=== PATIENT | male | born 1950 | race Caucasian/White ===

== ENCOUNTER 2017-10-06 12:33 | Emergency (ER) | payer BC ==
[2017-10-06 12:53] VITALS: RESP 18
[2017-10-06] MEDS ORDERED: DIPH,PERTUS(ACELL)TETVAC-LF 0.5 ML VIAL IM ONE (12:56)
--- NOTE | 2017-10-06 12:59 | ED ---
General Adult HPI - General Chief complaint: Fall Stated complaint: fall from ladder, head injury Time Seen by Provider: 10/06/17 12:46 Source: patient, family, RN notes reviewed Mode of arrival: ambulatory Limitations: altered mental status - History of Present Illness Initial comments: Patient is a pleasant 67-year-old male presenting to the emergency department after a fall. Patient does not recall the fall. Patient believes he fell probably only around 4 feet or so from a small stepladder. states this may be true however patient may have fallen up to 10 or 15 feet as he was working on someone does as well. She does notice that patient has had some repetitive questioning. Patient does recall waking up this morning and doing his normal activities. Patient only complains of a mild headache on the left side. Unclear last tetanus immunization. No chest pain or dyspnea. No abdominal pain. No extremity injury. Patient was ambulatory. - Related Data Home Medications Medication Instructions Recorded Confirmed ARIPiprazole [Abilify] 5 mg PO HS 10/06/17 10/06/17 Dutasteride [Avodart] 0.5 mg PO HS 10/06/17 10/06/17 Escitalopram Oxalate [Lexapro] 20 mg PO HS 10/06/17 10/06/17 clonazePAM [KlonoPIN] 0.5 mg PO BID 10/06/17 10/06/17 Allergies Allergy/AdvReac Type Severity Reaction Status Date / Time No Known Allergies Allergy Verified 10/06/17 13:05 Review of Systems ROS Statement: Those systems with pertinent positive or pertinent negative responses have been documented in the HPI. ROS Other: All systems not noted in ROS Statement are negative. Constitutional: Denies: fever Eyes: Denies: eye pain ENT: Denies: ear pain Respiratory: Denies: cough Cardiovascular: Denies: chest pain Endocrine: Denies: fatigue Gastrointestinal: Denies: abdominal pain Genitourinary: Denies: dysuria Musculoskeletal: Denies: back pain Skin: Denies: lesions Neurological: Reports: headache Past Medical History Past Medical History: No Reported History History of Any Multi-Drug Resistant Organisms: None Reported Past Surgical History: Hernia Repair Past Psychological History: Anxiety, Depression Smoking Status: Current every day smoker Past Alcohol Use History: None Reported Past Drug Use History: None Reported General Exam Limitations: altered mental status General appearance: alert, in no apparent distress Head exam: Present: other (Left frontal abrasions) Eye exam: Present: normal appearance, PERRL, EOMI. Absent: nystagmus ENT exam: Present: normal oropharynx Neck exam: Present: normal inspection, other (C-collar is in place). Absent: tenderness Respiratory exam: Present: normal lung sounds bilaterally. Absent: chest wall tenderness Cardiovascular Exam: Present: regular rate, normal rhythm GI/Abdominal exam: Present: soft. Absent: distended, tenderness, guarding, rebound, rigid Extremities exam: Present: normal inspection, full ROM. Absent: tenderness Neurological exam: Present: alert, oriented X3, CN II-XII intact. Absent: motor sensory deficit Expanded Neurological exam: Present: protecting the airway Patient oriented to: Present: person, place, time Speech: Present: fluid speech Cranial nerves: EOM's Intact: Normal, Facial Sensation: Normal Sensory exam: Upper Extremity Light Touch: Normal, Lower Extremity Light Touch: Normal Motor strength exam: RUE: 5, LUE: 5, RLE: 5, LLE: 5 Eye Response: (4) open spontaneously Motor Response: (6) obeys commands Verbal Response: (5) oriented Psychiatric exam: Present: normal affect, normal mood Skin exam: Present: abrasion (Left frontal and bilateral legs) Course Vital Signs 10/06/17 10/06/17 10/06/17 12:46 13:22 14:36 Temperature 97.5 F L Pulse Rate 79 73 72 Respiratory 18 18 18 Rate Blood Pressure 150/82 136/85 126/75 O2 Sat by Pulse 96 98 95 Oximetry Medical Decision Making - Medical Decision Making Patient reevaluated and improved. Patient is alert and appropriate. Family states patient mentation has returned to normal. Patient and family updated on results. - Radiology Data Radiology results: report reviewed (Computed tomography scan of the brain and cervical spine reveal no acute process.), image reviewed (Chest and pelvis x- rays show no acute process.) Disposition Clinical Impression: Fall, Concussion Disposition: HOME SELF-CARE Condition: Stable Instructions: Concussion (ED), Head Injury (ED) Additional Instructions: Wash abrasions twice daily with soap and water and apply antibiotic ointment. Please follow-up with primary care physician in the next couple days for recheck. Return for change in mental status, confusion, persistent vomiting, coordination problems, difficulty walking, worsening symptoms or other concerns. Is patient prescribed a controlled substance at d/c from ED?: No Referrals: Ron Da Silva DO [Primary Care Provider] - 1-2 days Time of Disposition: 14:55
--- NOTE | 2017-10-06 13:42 | CT ---
EXAMINATION TYPE: CT brain dontrell chavarria con DATE OF EXAM: 10/06/2017 COMPARISON: None HISTORY: Fall from ladder, head injury CT DLP: 1350.6 mGycm, Automated exposure control for dose reduction was used. CONTRAST: None CT of the brain is performed utilizing 3 mm thick sections through the posterior fossa and 3 mm thick sections through the remaining calvarium. Study is performed within 24 hours of arrival to the hospital. No abnormal hyperdensity is present to suggest an acute intracranial hemorrhage. No mass lesion is evident. No acute infarcts are evident. Ventricles and sulci are appropriate for the patient age. Soft tissue swelling is over the left frontal region. No underlying fracture is evident. Some subcuta neous emphysema is at the soft tissue swelling site. Paranasal sinuses and mastoid air cells within the [id number] are clear. IMPRESSIONS: 1. No acute intracranial process. CT cervical spine. COMPARISON: None CT of the cervical spine is performed in the axial plane at 2 mm thick sections. Reconstructed image s in the coronal, and sagittal plane are reviewed on the computer. No acute fractures are evident. Vertebral body alignment is normal. Disc heights are preserved.Disc bulging with mild anterior thecal sac compression at C4-5 level. Vertebral body heights are preserved. No spinal canal stenosis is evident. Mild uncovertebral joint hypertrophy at C6-7 has mild foraminal narrowing. IMPRESSIONS: 1. No acute osseous abnormality.
--- NOTE | 2017-10-06 14:01 | XR ---
EXAMINATION TYPE: XR chest 1V portable DATE OF EXAM: 10/06/2017 COMPARISON: NONE HISTORY: Pain post fall TECHNIQUE: Single frontal view of the chest is obtained. FINDINGS: There is no focal air space opacity, pleural effusion, or pneumothorax seen. The cardiac silhouette size is within normal limits. The osseous structures are intact. Arthropathy of the shou lders. IMPRESSION: No acute process.
--- NOTE | 2017-10-06 14:01 | XR ---
EXAMINATION TYPE: XR pelvis AP view DATE OF EXAM: 10/06/2017 CLINICAL HISTORY: Fall injury with pain. TECHNIQUE: A single AP view of the pelvis is obtained. COMPARISON: None. FINDINGS: There is no acute fracture/dislocation evident in the pelvis. The sacroiliac joints appea r symmetric and unremarkable. Mild to moderate right greater than left axial hip joint space loss is present. There is mild spurring at head neck junction. Vascular coils right groin region are redemons trated. IMPRESSION: There is no acute fracture or dislocation in the pelvis.
[2017-10-06] MEDS ORDERED: ACETAMINOPHEN TAB 500 MG TAB PO STA (14:55)
[2017-10-06 16:31] VITALS: BP 125/83; PULSE 84; TEMP 98
== END 2017-10-06 15:11 | disposition home or self-care (01) ==
LOC: EC 12:33
DX: S06.0X0A Concussion without loss of consciousness, initial encounter (principal); S00.81XA Abrasion of other part of head, initial encounter; S80.812A Abrasion, left lower leg, initial encounter; S80.811A Abrasion, right lower leg, initial encounter; R40.2142 Coma scale, eyes open, spontaneous, at arrival to emergency department; R40.2252 Coma scale, best verbal response, oriented, at arrival to emergency department; R40.2362 Coma scale, best motor response, obeys commands, at arrival to emergency department; F41.9 Anxiety disorder, unspecified; F32.9 Major depressive disorder, single episode, unspecified; F17.200 Nicotine dependence, unspecified, uncomplicated; Z23 Encounter for immunization; Z79.899 Other long term (current) drug therapy; W11.XXXA Fall on and from ladder, initial encounter; Y92.89 Other specified places as the place of occurrence of the external cause
CPT/HCPCS: 70450; 71045; 72125; 72170; 90471; 90715; 99284

== ENCOUNTER 2021-05-03 17:09 | Inpatient (IN) | payer MEDICARE, BC ==
[2021-05-03] MEDS ORDERED: SODIUM CHLORIDE 0.9% 1,000 ML IV STA ×2 (17:54→19:26)
[2021-05-03] MEDS ORDERED: diphenhydrAMINE 50 MG/ML 1 ML VIAL IVP STA (17:54)
[2021-05-03] MEDS ORDERED: METOCLOPRAMIDE 5 MG/ML 2 ML VIAL IVP STA (17:54)
[2021-05-03] MEDS ORDERED: MORPHINE SULFATE 4 MG/ML SYRINGE IV STA (17:54)
[2021-05-03] MEDS ORDERED: PANTOPRAZOLE 40 MG/10 ML VIAL IVP STA (17:54)
[2021-05-03 18:25] LABS: Basophils % (A) 0 %; Eosinophils # (A) 0.1 k/uL (0-0.7); Eosinophils % (A) 0 %; HCT 46.8 % (39.0-53.0); HGB 16.1 gm/dL (13.0-17.5); Lymphocytes # (A) 0.7 k/uL (1.0-4.8); Lymphocytes % (A) 4 %; MCH 31.6 pg (25.0-35.0); MCHC 34.5 g/dL (31.0-37.0); MCV 91.7 fL (80.0-100.0); Mean Platelet Volume 8.1; Monocytes # (A) 1.3 k/uL (0-1.0); Monocytes % (A) 7 %; Neutrophils # (A) 15.2 k/uL (1.3-7.7); Neutrophils % (A) 86 %; Platelet Count 240 k/uL (150-450); RDW 12.6 % (11.5-15.5); WBC 17.7 k/uL (3.8-10.6)
[2021-05-03 18:33] LABS: Partial Thromboplastin Time 23.8 sec (22.0-30.0)
[2021-05-03 18:35] LABS: ALT 28 U/L (4-49); AST 29 U/L (17-59); African American GFR (CKD) >90 (>60 ml/min/1.73 sqM); Albumin 4.1 g/dL (3.5-5.0); Alkaline Phosphatase 116 U/L (38-126); Amylase 45 U/L (30-110); Anion Gap 9 mmol/L; Blood Urea Nitrogen 12 mg/dL (9-20); Carbon Dioxide 27 mmol/L (22-30); Chloride 100 mmol/L (98-107); Glucose 132 mg/dL (74-99); Lipase 14 U/L (23-300); Non-African American GFR(CKD) 87 (>60 ml/min/1.73 sqM); Potassium 4.3 mmol/L (3.5-5.1); Sodium 136 mmol/L (137-145); Total Bilirubin 1.4 mg/dL (0.2-1.3); Total Protein 7.3 g/dL (6.3-8.2)
--- NOTE | 2021-05-03 19:13 | CT ---
EXAMINATION TYPE: CT abdomen pelvis w con DATE OF EXAM: 05/03/2021 COMPARISON: None HISTORY: Abdominal pain CT DLP: mGycm Automated exposure control for dose reduction was used. CONTRAST: The contrast was Isovue 100 mL. Images obtained from the diaphragm to the floor the pelvis. There is mild subsegmental atelectasis right lung base. Heart size is normal. There is no pericardial effusion. There is small hiatal hernia. Liver spleen and stomach appear intact. There is no pancreat ic mass. Gallbladder appears normal. The bile ducts are not dilated. There is no adrenal mass. There are bilateral multiple renal cortical cysts that measure up to 2 cm. There is no hydronephrosis. Ureters are not dilated. There is no retroperitoneal adenopathy. There is increased density at the hepatic flexure of the colon that could be surgical clips or ingest ed material. Correlation with the surgical history is needed. There is extensive fat stranding in the right mid abdomen apparently related to dilated fluid-filled appendix with surrounding inflammatory changes. Appendix measures up to 1.5 cm. There is no free fluid in the pelvis. Bladder distends yamileth hly. Prostate is intact. There is no inguinal hernia. There is no evidence of a bowel obstruction. There is a 3 cm fat-containing umbilical hernia. The lumbar vertebrae have normal alignment. Posterio r elements are intact. There is no compression fracture. Bony pelvis is intact. The hip joints are in tact. IMPRESSION: Extensive fat stranding in the right lower quadrant with apparent dilated appendix related to appendi citis. Appendiceal rupture is possible. Mild atelectasis at the right lung base.
[2021-05-03] MEDS ORDERED: ONDANSETRON 4 MG/2 ML VIAL IVP PRN (19:54)
[2021-05-03] MEDS ORDERED: MORPHINE SULFATE 4 MG/ML SYRINGE IV PRN (19:54)
[2021-05-03] MEDS ORDERED: NALOXONE 0.4 MG/ML 1 ML VIAL IV PRN (19:54)
[2021-05-03] MEDS ORDERED: metroNIDAZOLE-NS PMX 500 MG in SALINE 1 100ML.BAG IVPB ONE (20:00)
[2021-05-03] MEDS ORDERED: CEFEPIME 2 GM in SODIUM CHLORIDE 0.9% 100 ML IVPB ONE (20:00)
--- NOTE | 2021-05-03 20:02 | ED ---
General Adult HPI - General Chief complaint: Abdominal Pain Stated complaint: abd pain, sent from walk-in clinic Time Seen by Provider: 05/03/21 17:20 Source: patient, RN notes reviewed, old records reviewed Mode of arrival: ambulatory Limitations: no limitations - History of Present Illness Initial comments: Patient is a 71-year-old male with past medical history remarkable for bilateral hernia repairs, prostate issues presents emergency Department complaining of acute abdominal pain for one day. Describes it as a sharp, achy pain primarily in the right lower quadrant. Endorses nausea. Denies any emesis or diarrhea. Still passing gas. No concern for constipation. Denies any radiation of the pain. States he started dosing of this morning. He initially presented to an outside clinic, who instructed him to come here for further evaluation. Denies any chest pain, shortness breath, fevers, chills. Has no other acute complaints at this time. - Related Data Home Medications Medication Instructions Recorded Confirmed Atomoxetine HCl [Strattera] 60 mg PO DAILY 05/03/21 05/03/21 OLANZapine 15 mg PO DAILY 05/03/21 05/03/21 Venlafaxine HCl ER [Effexor Xr] 150 mg PO DAILY 05/03/21 05/03/21 lamoTRIgine 150 mg PO BID 05/03/21 05/03/21 Allergies Allergy/AdvReac Type Severity Reaction Status Date / Time No Known Allergies Allergy Verified 05/03/21 19:56 Review of Systems ROS Statement: Those systems with pertinent positive or pertinent negative responses have been documented in the HPI. Review of Systems: CONST: Denies fever EYES: Denies blurry vision ENT: Denies nasal congestion C/V: Denies Chest pain RESP: Denies shortness of breath GI: Endorses abdominal pain : Denies dysuria SKIN: Denies rash. MSK: Denies joint pain. NEURO: Denies headache ROS Other: All systems not noted in ROS Statement are negative. Past Medical History Past Medical History: No Reported History History of Any Multi-Drug Resistant Organisms: None Reported Past Surgical History: Hernia Repair Past Psychological History: Anxiety, Depression Smoking Status: Never smoker Past Alcohol Use History: None Reported Past Drug Use History: None Reported General Exam - General Exam Comments Initial Comments: General: He is mild distress secondary to abdominal discomfort. HEAD: Normal with no signs of head trauma. EYES: PERRLA, EOMI, conjunctiva normal, no discharge. ENT: Hearing grossly intact, normal oropharynx. RESPIRATORY: Clear breath sounds bilaterally. No wheezes, rales, or rhonchi. C/V: Regular rate and rhythm. S1 and S2 auscultated, no edema, peripheral pulses 2+ and intact throughout ABD: Abdomen is soft, nondistended. Patient is tender over McBurney's point in the right lower quadrant. No rebound tenderness. No peritoneal signs. Minimal guarding. EXT: Normal range of motion, no obvious deformity SKIN: No rashes or lesions observed on exposed skin. NEURO: Alert and oriented 4. Limitations: no limitations Course Vital Signs 05/03/21 05/03/21 17:15 20:00 Temperature 98.2 F 98.9 F Pulse Rate 116 H 94 Respiratory 20 16 Rate Blood Pressure 141/89 126/73 O2 Sat by Pulse 97 95 Oximetry Medical Decision Making - Medical Decision Making Based on the patient's presentation physical exam, and there is concern for acute intra-abdominal process for his current symptoms. Therefore we will obtain abdominal laboratory studies as well as CT abdomen and pelvis. He was in agreement this plan. He'll be given IV analgesia as well as a 1 L fluid bolus. Laboratory studies were remarkable for leukocytosis of 17.7. Lactate is within normal limits. Urinalysis is unremarkable. Covid is negative. Remainder of her labs are unremarkable. CT imaging reveals findings concerning for acute appendicitis or possible rupture. I did update the patient on the findings. He will be started on an about accept her blood cultures are obtained. He started on cefepime and Flagyl. I spoke with the on-call surgeon, Dr. Botello was in agreement this plan. He does not believe that the appendix is ruptured at this time and will evaluate the patient morning. He'll remain nothing by mouth. I discussed this with the patient he was in agreement this plan. Patient was therefore admitted in serious condition. - Lab Data Result diagrams: 05/03/21 18:02 05/03/21 18:02 Lab Results 05/03/21 05/03/21 05/03/21 Range/Units 18:02 18:02 18:02 WBC 17.7 H (3.8-10.6) k/uL RBC 5.10 (4.30-5.90) m/uL Hgb 16.1 (13.0-17.5) gm/dL Hct 46.8 (39.0-53.0) % MCV 91.7 (80.0-100.0) fL MCH 31.6 (25.0-35.0) pg MCHC 34.5 (31.0-37.0) g/dL RDW 12.6 (11.5-15.5) % Plt Count 240 (150-450) k/uL MPV 8.1 Neutrophils % 86 % Lymphocytes % 4 % Monocytes % 7 % Eosinophils % 0 % Basophils % 0 % Neutrophils # 15.2 H (1.3-7.7) k/uL Lymphocytes # 0.7 L (1.0-4.8) k/uL Monocytes # 1.3 H (0-1.0) k/uL Eosinophils # 0.1 (0-0.7) k/uL Basophils # 0.0 (0-0.2) k/uL PT 11.0 (9.0-12.0) sec INR 1.0 (<1.2) APTT 23.8 (22.0-30.0) sec Sodium 136 L (137-145) mmol/L Potassium 4.3 (3.5-5.1) mmol/L Chloride 100 (98-107) mmol/L Carbon Dioxide 27 (22-30) mmol/L Anion Gap 9 mmol/L BUN 12 (9-20) mg/dL Creatinine 0.88 (0.66-1.25) mg/dL Est GFR (CKD-EPI)AfAm >90 (>60 ml/min/1.73 sqM) Est GFR (CKD-EPI)NonAf 87 (>60 ml/min/1.73 sqM) Glucose 132 H (74-99) mg/dL Plasma Lactic Acid Torrey (0.7-2.0) mmol/L Calcium 9.0 (8.4-10.2) mg/dL Total Bilirubin 1.4 H (0.2-1.3) mg/dL AST 29 (17-59) U/L ALT 28 (4-49) U/L Alkaline Phosphatase 116 (38-126) U/L Total Protein 7.3 (6.3-8.2) g/dL Albumin 4.1 (3.5-5.0) g/dL Amylase 45 (30-110) U/L Lipase 14 L (23-300) U/L Urine Color Urine Appearance (Clear) Urine pH (5.0-8.0) Ur Specific Oaks (1.001-1.035) Urine Protein (Negative) Urine Glucose (UA) (Negative) Urine Ketones (Negative) Urine Blood (Negative) Urine Nitrite (Negative) Urine Bilirubin (Negative) Urine Urobilinogen (<2.0) mg/dL Ur Leukocyte Esterase (Negative) Urine RBC (0-5) /hpf Urine WBC (0-5) /hpf Ur Squamous Epith Cells (0-4) /hpf Urine Mucus (None) /hpf Coronavirus (PCR) (Not Detectd) Blood Type Confirm 05/03/21 05/03/21 05/03/21 Range/Units 18:02 18:02 19:47 WBC (3.8-10.6) k/uL RBC (4.30-5.90) m/uL Hgb (13.0-17.5) gm/dL Hct (39.0-53.0) % MCV (80.0-100.0) fL MCH (25.0-35.0) pg MCHC (31.0-37.0) g/dL RDW (11.5-15.5) % Plt Count (150-450) k/uL MPV Neutrophils % % Lymphocytes % % Monocytes % % Eosinophils % % Basophils % % Neutrophils # (1.3-7.7) k/uL Lymphocytes # (1.0-4.8) k/uL Monocytes # (0-1.0) k/uL Eosinophils # (0-0.7) k/uL Basophils # (0-0.2) k/uL PT (9.0-12.0) sec INR (<1.2) APTT (22.0-30.0) sec Sodium (137-145) mmol/L Potassium (3.5-5.1) mmol/L Chloride (98-107) mmol/L Carbon Dioxide (22-30) mmol/L Anion Gap mmol/L BUN (9-20) mg/dL Creatinine (0.66-1.25) mg/dL Est GFR (CKD-EPI)AfAm (>60 ml/min/1.73 sqM) Est GFR (CKD-EPI)NonAf (>60 ml/min/1.73 sqM) Glucose (74-99) mg/dL Plasma Lactic Acid Torrey 1.8 (0.7-2.0) mmol/L Calcium (8.4-10.2) mg/dL Total Bilirubin (0.2-1.3) mg/dL AST (17-59) U/L ALT (4-49) U/L Alkaline Phosphatase (38-126) U/L Total Protein (6.3-8.2) g/dL Albumin (3.5-5.0) g/dL Amylase (30-110) U/L Lipase (23-300) U/L Urine Color Urine Appearance (Clear) Urine pH (5.0-8.0) Ur Specific Oaks (1.001-1.035) Urine Protein (Negative) Urine Glucose (UA) (Negative) Urine Ketones (Negative) Urine Blood (Negative) Urine Nitrite (Negative) Urine Bilirubin (Negative) Urine Urobilinogen (<2.0) mg/dL Ur Leukocyte Esterase (Negative) Urine RBC (0-5) /hpf Urine WBC (0-5) /hpf Ur Squamous Epith Cells (0-4) /hpf Urine Mucus (None) /hpf Coronavirus (PCR) Not Detected (Not Detectd) Blood Type Confirm A Positive 05/03/21 Range/Units 19:50 WBC (3.8-10.6) k/uL RBC (4.30-5.90) m/uL Hgb (13.0-17.5) gm/dL Hct (39.0-53.0) % MCV (80.0-100.0) fL MCH (25.0-35.0) pg MCHC (31.0-37.0) g/dL RDW (11.5-15.5) % Plt Count (150-450) k/uL MPV Neutrophils % % Lymphocytes % % Monocytes % % Eosinophils % % Basophils % % Neutrophils # (1.3-7.7) k/uL Lymphocytes # (1.0-4.8) k/uL Monocytes # (0-1.0) k/uL Eosinophils # (0-0.7) k/uL Basophils # (0-0.2) k/uL PT (9.0-12.0) sec INR (<1.2) APTT (22.0-30.0) sec Sodium (137-145) mmol/L Potassium (3.5-5.1) mmol/L Chloride (98-107) mmol/L Carbon Dioxide (22-30) mmol/L Anion Gap mmol/L BUN (9-20) mg/dL Creatinine (0.66-1.25) mg/dL Est GFR (CKD-EPI)AfAm (>60 ml/min/1.73 sqM) Est GFR (CKD-EPI)NonAf (>60 ml/min/1.73 sqM) Glucose (74-99) mg/dL Plasma Lactic Acid Torrey (0.7-2.0) mmol/L Calcium (8.4-10.2) mg/dL Total Bilirubin (0.2-1.3) mg/dL AST (17-59) U/L ALT (4-49) U/L Alkaline Phosphatase (38-126) U/L Total Protein (6.3-8.2) g/dL Albumin (3.5-5.0) g/dL Amylase (30-110) U/L Lipase (23-300) U/L Urine Color Light Yellow Urine Appearance Clear (Clear) Urine pH 7.5 (5.0-8.0) Ur Specific [place] 1.031 (1.001-1.035) Urine Protein Negative (Negative) Urine Glucose (UA) Negative (Negative) Urine Ketones Negative (Negative) Urine Blood Trace H (Negative) Urine Nitrite Negative (Negative) Urine Bilirubin Negative (Negative) Urine Urobilinogen <2.0 (<2.0) mg/dL Ur Leukocyte Esterase Negative (Negative) Urine RBC 2 (0-5) /hpf Urine WBC <1 (0-5) /hpf Ur Squamous Epith Cells <1 (0-4) /hpf Urine Mucus Rare H (None) /hpf Coronavirus (PCR) (Not Detectd) Blood Type Confirm Disposition Clinical Impression: Acute appendicitis Disposition: ADMITTED IP TO THIS HOSP Condition: Serious
[2021-05-03 20:04] LABS: Appearance,Urine Clear (Clear); Bilirubin,Urine Negative (Negative); Blood,Urine Trace (Negative); Color,Urine Light Yellow; Glucose,Urine (UA) Negative (Negative); Ketones,Urine Negative (Negative); Leukocyte Esterase,Urine Negative (Negative); Mucus,Urine Rare /hpf; Nitrite,Urine Negative (Negative); PH, Urine 7.5 (5.0-8.0); Protein,Urine Negative (Negative); RBC,Urine 2 /hpf (0-5); Specific Gravity,Urine 1.031 (1.001-1.035); Squamous Epithelial Cell,Urine <1 /hpf (0-4); Urobilinogen,Urine <2.0 mg/dL (<2.0); WBC,Urine <1 /hpf (0-5)
[2021-05-04] MEDS: HEPARIN SODIUM,PORCINE/PF 5,000 UNIT/0.5 ML SYRINGE SQ SCH ×3 (00:20→16:11)
[2021-05-04] MEDS: CEFEPIME 2 GM in SODIUM CHLORIDE 0.9% 100 ML IVPB SCH ×3 (03:39→20:22)
[2021-05-04] MEDS: metroNIDAZOLE-NS PMX 500 MG in SALINE 1 100ML.BAG IVPB SCH ×3 (03:40→20:23)
--- NOTE | 2021-05-04 09:58 | P.GSHP ---
History of Present Illness H&P Date: 05/04/21 Chief Complaint: Right lower quadrant pain 71-year-old male presents to the ER yesterday with a complaint of abdominal pain that began at 4 AM. Patient says it was not that severe and is actually better this morning. No history of symptoms prior to that. No diarrhea or co nstipation. Denies rectal bleeding or melena. Patient's white blood cell count was elevated at 17. CAT scan was performed which demonstrates significant thickening of the appendix and the base of the cecum. There are inflammatory changes in the right lower quadrant as well. Patient is afebrile. Was initially tachycardic but that resolved. Denies nausea vomiting. Appetite somewhat diminished. - Review of Systems Comment: The patient denies any acute changes in vision or hearing, no dysphagia or odynophagia, no chest pain or shortness of breath, no dysuria or hematuria, no headache, no runny nose, no rectal bleeding or melena, no unexplained weight loss Past Medical History Past Medical History: No Reported History History of Any Multi-Drug Resistant Organisms: None Reported Past Surgical History: Hernia Repair Additional Past Surgical History / Comment(s): partial prostate removal r/t enlargement Past Anesthesia/Blood Transfusion Reactions: No Reported Reaction Past Psychological History: Anxiety, Depression Smoking Status: Never smoker Past Alcohol Use History: None Reported Past Drug Use History: None Reported Medications and Allergies Home Medications Medication Instructions Recorded Confirmed Type Atomoxetine HCl [Strattera] 60 mg PO DAILY 05/03/21 05/03/21 History OLANZapine 15 mg PO DAILY 05/03/21 05/03/21 History Venlafaxine HCl ER [Effexor Xr] 150 mg PO DAILY 05/03/21 05/03/21 History lamoTRIgine 150 mg PO BID 05/03/21 05/03/21 History Allergies Allergy/AdvReac Type Severity Reaction Status Date / Time No Known Allergies Allergy Verified 05/03/21 19:56 Surgical - Exam Vital Signs Temp Pulse Resp BP Pulse Ox 98.2 F 116 H 20 141/89 97 05/03/21 17:15 05/03/21 17:15 05/03/21 17:15 05/03/21 17:15 05/03/21 17:15 Physical exam: General: Well-developed, well-nourished HEENT: Normocephalic, sclerae nonicteric Abdomen: Mild distention, right lower quadrant tenderness with fullness, incarcerated umbilical hernia Extremities: No edema Neuro: Alert and oriented Results - Labs 05/03/21 18:02 05/03/21 18:02 Abnormal Lab Results - Last 24 Hours (Table) 05/03/21 05/03/21 05/03/21 Range/Units 18:02 18:02 19:50 WBC 17.7 H (3.8-10.6) k/uL Neutrophils # 15.2 H (1.3-7.7) k/uL Lymphocytes # 0.7 L (1.0-4.8) k/uL Monocytes # 1.3 H (0-1.0) k/uL Sodium 136 L (137-145) mmol/L Glucose 132 H (74-99) mg/dL Total Bilirubin 1.4 H (0.2-1.3) mg/dL Lipase 14 L (23-300) U/L Urine Blood Trace H (Negative) Urine Mucus Rare H (None) /hpf Diabetes panel 05/03/21 Range/Units 18:02 Sodium 136 L (137-145) mmol/L Potassium 4.3 (3.5-5.1) mmol/L Chloride 100 (98-107) mmol/L Carbon Dioxide 27 (22-30) mmol/L BUN 12 (9-20) mg/dL Creatinine 0.88 (0.66-1.25) mg/dL Glucose 132 H (74-99) mg/dL Calcium 9.0 (8.4-10.2) mg/dL AST 29 (17-59) U/L ALT 28 (4-49) U/L Alkaline Phosphatase 116 (38-126) U/L Total Protein 7.3 (6.3-8.2) g/dL Albumin 4.1 (3.5-5.0) g/dL Calcium panel 05/03/21 Range/Units 18:02 Calcium 9.0 (8.4-10.2) mg/dL Albumin 4.1 (3.5-5.0) g/dL Pituitary panel 05/03/21 Range/Units 18:02 Sodium 136 L (137-145) mmol/L Potassium 4.3 (3.5-5.1) mmol/L Chloride 100 (98-107) mmol/L Carbon Dioxide 27 (22-30) mmol/L BUN 12 (9-20) mg/dL Creatinine 0.88 (0.66-1.25) mg/dL Glucose 132 H (74-99) mg/dL Calcium 9.0 (8.4-10.2) mg/dL Adrenal panel 05/03/21 Range/Units 18:02 Sodium 136 L (137-145) mmol/L Potassium 4.3 (3.5-5.1) mmol/L Chloride 100 (98-107) mmol/L Carbon Dioxide 27 (22-30) mmol/L BUN 12 (9-20) mg/dL Creatinine 0.88 (0.66-1.25) mg/dL Glucose 132 H (74-99) mg/dL Calcium 9.0 (8.4-10.2) mg/dL Total Bilirubin 1.4 H (0.2-1.3) mg/dL AST 29 (17-59) U/L ALT 28 (4-49) U/L Alkaline Phosphatase 116 (38-126) U/L Total Protein 7.3 (6.3-8.2) g/dL Albumin 4.1 (3.5-5.0) g/dL Assessment and Plan (1) Acute appendicitis Narrative/Plan: 71-year-old male with inflammatory changes of the appendix. Unfortunately the patient also has thickening of the cecum. Unclear whether this abnormality of the cecum is related to the appendicitis or if the patient may have pathology at the cecum leading to the appendicitis. The patient was informed that there is the possibility of malignancy of the colon as the etiology. Options of conservative management with antibiotics and follow-up CAT scan/colonoscopy versus operative intervention at this time were discussed in detail. Patient was notified that if we went to surgery at this point the likelihood that we would have to convert from a laparoscopic to an open approach and may even require partial colectomy is probably around 50%. Patient would like to proceed with surgical intervention at this time stating. We'll proceed with diagnostic laparoscopy, possible appendectomy, possible open partial colectomy. If open approach will repair umbilical hernia at that time. Risks of bleeding, infection, abscess, bladder bowel and ureteral injury, hernia, sepsis were reviewed. He understands and wishes to proceed. Current Visit: Yes Status: Acute Code(s): K35.80 - UNSPECIFIED ACUTE APPENDICITIS SNOMED Code(s): 03080597
[2021-05-04] MEDS ORDERED: GLYCOPYRROLATE 0.2 MG/ML 2 ML VIAL ONE (10:28)
[2021-05-04] MEDS ORDERED: PHENYLEPHRINE-0.9% NACL SYG 1,000 MCG/10 ML SYRINGE ONE (10:28)
[2021-05-04] MEDS ORDERED: MIDAZOLAM 2 MG/2 ML VIAL ONE (10:28)
[2021-05-04] MEDS ORDERED: fentaNYL (PF) 50 MCG/ML 2 ML AMP ONE (10:28)
[2021-05-04] MEDS ORDERED: ROCURONIUM 10 MG/ML (5 ML VIAL) IV ONE (10:28)
[2021-05-04] MEDS ORDERED: ONDANSETRON 4 MG/2 ML VIAL IVP ONE (10:28)
[2021-05-04] MEDS ORDERED: PROPOFOL 10 MG/ML 20 ML VIAL IV ONE (10:28)
[2021-05-04] MEDS ORDERED: NEOSTIGMINE 1 MG/ML 10 ML VIAL ONE (10:28)
[2021-05-04] MEDS ORDERED: SUCCINYLCHOLINE CHLORIDE 100 MG/5 ML SYR IV ONE (10:28)
[2021-05-04] MEDS ORDERED: LIDOCAINE 1% INJ 10MG/ML (20 ML MDV) ONE (10:28)
[2021-05-04] MEDS ORDERED: IV FLUID CONTINUATION 900 ML IV ONE (10:29)
[2021-05-04] MEDS ORDERED: BUPIVACAIN-EPI 0.25%-1:200,000 30 ML VIAL SQ ONE ×3 (10:33→10:53)
[2021-05-04 11:45] LABS: Basophils # (A) 0.04 X 10*3/uL (0.00-0.10); Basophils % (A) 0.4 %; Eosinophils # (A) 0.04 X 10*3/uL (0.04-0.35); Eosinophils % (A) 0.4 %; HCT 40.9 % (39.6-50.0); HGB 13.5 g/dL (13.0-17.0); Immature Grans, Automated 0.5 %; Lymphocytes # (A) 1.04 X 10*3/uL (0.90-5.00); Lymphocytes % (A) 9.4 %; MCH 30.3 pg (27.0-32.0); MCV 91.9 fL (80.0-97.0); Mean Platelet Volume 11.1 fL (9.5-12.2); Monocytes # (A) 1.36 X 10*3/uL (0.20-1.00); Monocytes % (A) 12.3 %; NRBC Per 100 WBC 0 /100 WBCS (0.0-0.0); Platelet Count 199 X 10*3/uL (140-440); RBC 4.45 X 10*6/uL (4.40-5.60); RDW 12.4 % (11.5-14.5); WBC 11.03 X 10*3/uL (4.50-10.00)
[2021-05-04 11:52] LABS: Anion Gap 10.2 mmol/L (10.00-18.00); BUN/Creat Ratio 12.55 Ratio (12.00-20.00); Blood Urea Nitrogen 12.1 mg/dL (9.0-27.0); Calcium 8.7 mg/dL (8.7-10.3); Carbon Dioxide 24.5 mmol/L (20.0-27.5); Non-African American GFR(CKD) 79.4 (60.0-200.0); Potassium 3.9 mmol/L (3.5-5.5)
[2021-05-04] MEDS ORDERED: IBUPROFEN 600 MG TAB PO PRN (12:02)
--- NOTE | 2021-05-04 12:07 | P.OP ---
Date of Procedure: 05/04/21 Procedure(s) Performed: PREOPERATIVE DIAGNOSIS: Acute appendicitis POSTOPERATIVE DIAGNOSIS: Same PROCEDURE: Laparoscopic appendectomy SURGEON: Rosmery EBL: 10 mL ANESTHESIA: General COMPLICATIONS: None OPERATIVE PROCEDURE: The patient was brought and placed on the operating table in the supine position. The patient was placed under general anesthesia. The abdomen was prepped and draped in the usual sterile fashion. A small vertical periumbilical incision was made. The fascia was retracted anteriorly with Riaz forceps. The Veress needle was advanced into the peritoneal cavity. The saline drop test was normal. Insufflation took place to 15 mmHg. A 5 mm trocar was then placed. An additional 5 mm suprapubic trocar was placed under direct visualization as well as a 12 mm left lower quadrant trocar under direct visualization. The patient had significant inflammation in the right lower quadrant. As we bluntly dissected the small bowel away from the base of the cecum some purulence was noted consistent with appendicitis. I was then able to visualize the appendix that was densely adherent to the pericolonic fat. Further blunt dissection ensued. The appendix had a gangrenous appearance. There was an ischemic appearing portion of the appendix that was right at the junction with the cecum. The appendix was mobilized using the LigaSure device. No bleeding was seen. I dissected more of the pericolonic fat at the base of the cecum that usual. This allowed us to divide the base of the cecum approximately 1 cm away from the area of ischemic change. This staple fire was a green load. A small few millimeter section was not divided in this was further divided with a blue load stapler. The appendix was then placed in a Endo Catch bag. The right lower quadrant was irrigated. No purulence or bleeding was seen. I placed a drain in the pelvis extending up to the right gutter adjacent to the staple line. This exited through the suprapubic 5 mm trocar site. The appendix was then removed using the Endo Catch bag. The 12 mm trocar site was closed using a NatalyaRebecca 0 Vicryl stitch. The pneumoperitoneum was evacuated. The patient's umbilical hernia was not addressed during the surgery. The skin at both sites was closed using 4-0 Monocryl sutures. Skin glue was then applied. DISPOSITION: Stable to recovery room
[2021-05-04 12:23] LABS: INR 1.1 (0.90-1.11)
[2021-05-04] MEDS: HYDROcodone/APAP 5-325MG 1 EACH TAB PO PRN ×2 (14:42→21:22)
[2021-05-04] MEDS: FAMOTIDINE 20 MG/2 ML VIAL IV SCH (20:25)
[2021-05-05] MEDS: HEPARIN SODIUM,PORCINE/PF 5,000 UNIT/0.5 ML SYRINGE SQ SCH ×3 (00:50→15:46)
[2021-05-05] MEDS: HYDROcodone/APAP 5-325MG 1 EACH TAB PO PRN ×2 (04:43→15:50)
[2021-05-05] MEDS: CEFEPIME 2 GM in SODIUM CHLORIDE 0.9% 100 ML IVPB SCH ×3 (04:44→19:54)
[2021-05-05] MEDS: metroNIDAZOLE-NS PMX 500 MG in SALINE 1 100ML.BAG IVPB SCH ×3 (04:45→19:54)
[2021-05-05] MEDS: ATOMOXETINE HCL 60 MG PO SCH (08:30)
[2021-05-05] MEDS: lamoTRIgine 100 MG TAB PO SCH ×2 (08:31→21:37)
[2021-05-05] MEDS: FAMOTIDINE 20 MG/2 ML VIAL IV SCH ×2 (08:31→21:38)
[2021-05-05] MEDS: OLANZapine 7.5 MG TAB PO SCH (08:39)
[2021-05-05] MEDS: VENLAFAXINE HCL ER 150 MG CAP PO SCH (08:39)
[2021-05-05 10:25] LABS: Basophils % (A) 0 %; Eosinophils # (A) 0.3 k/uL (0-0.7); Eosinophils % (A) 4 %; HCT 41.8 % (39.0-53.0); HGB 13.7 gm/dL (13.0-17.5); Lymphocytes % (A) 12 %; MCH 30.6 pg (25.0-35.0); MCHC 32.7 g/dL (31.0-37.0); MCV 93.7 fL (80.0-100.0); Mean Platelet Volume 8.6; Monocytes # (A) 0.9 k/uL (0-1.0); Monocytes % (A) 10 %; Neutrophils % (A) 72 %; Platelet Count 197 k/uL (150-450); RBC 4.46 m/uL (4.30-5.90); RDW 12.1 % (11.5-15.5); WBC 8.4 k/uL (3.8-10.6)
--- NOTE | 2021-05-05 10:47 | P.PN ---
<Farrah Roldan - Last Filed: 05/05/21 10:44> Subjective Progress Note Date: 05/05/21 CHIEF COMPLAINT: Appendicitis HISTORY OF PRESENT ILLNESS: Patient is status post laparoscopic appendectomy. He reports that his pain is controlled. He has more pain with movement. He reports passing small amount of flatus. Denies any nausea or vomiting. Afebrile. WBC is 8.4 hemoglobin 13.7 platelets 197 PHYSICAL EXAM: VITAL SIGNS: Reviewed. GENERAL: Well-developed in no acute distress. HEENT: No sclera icterus. Extraocular movements grossly intact. Moist buccal mucosa. Head is atraumatic, normocephalic. ABDOMEN: Soft. Mildly distended. Mild tenderness. Incision sites clean dry and intact. DELFINO drain with serosanguineous 40 mL output through the night NEUROLOGIC: Alert and oriented. Cranial nerves II through XII grossly intact. ASSESSMENT: 1. Acute appendicitis status post laparoscopic appendectomy PLAN: -Continue antibiotics -Continue full liquid diet -Continue pain medication as needed -Encourage patient to ambulate -Continue antibiotics -Resume home medications -Incentive spirometer ordered -GI prophylaxis Pepcid and DVT prophylaxis subcu heparin Physician Special Procedures Tech note has been reviewed by physician. Signing provider agrees with the documented findings, assessment, and plan of care. Objective - Vital Signs Vital signs: Vital Signs Temp 97.9 F 05/05/21 04:34 Pulse 66 05/05/21 04:34 Resp 16 05/05/21 04:34 BP 132/78 05/05/21 04:34 Pulse Ox 94 L 05/05/21 04:34 Intake & Output 05/04/21 05/05/21 05/05/21 18:59 06:59 18:59 Intake Total 250 1300 Output Total 460 1180 Balance -210 120 Intake: IV 250 Intake, IV Titration 400 Amount Cefepime 2 gm In Sodium 200 Chloride 0.9% 100 ml @ 25 mls/hr IVPB Q8H MARIA ESTHER Rx#: [id number] metroNIDAZOLE-NS PMX 500 200 mg In Saline 1 100ml.bag @ 100 mls/hr IVPB Q8H MARIA ESTHER Rx#:[id number] Oral 900 Output: Drainage 70 40 Lower Abdomen 70 40 Urine 385 1140 Estimated Blood Loss 5 Other: Voiding Method Toilet Urinal # Voids 4 1 - Labs CBC & Chem 7: 05/05/21 09:59 05/04/21 06:45 Labs: Abnormal Lab Results - Last 24 Hours (Table) 05/04/21 05/04/21 Range/Units 06:45 06:45 WBC 11.03 H (4.50-10.00) X 10*3/uL Immature Gran # 0.05 H (0.00-0.04) X 10*3/uL Neutrophils # 8.50 H (1.80-7.70) X 10*3/uL Monocytes # 1.36 H (0.20-1.00) X 10*3/uL PT 12.0 H (9.9-11.9) sec Microbiology - Last 24 Hours (Table) 05/03/21 21:00 Blood Culture - Preliminary Blood No Growth after 24 hours 05/03/21 19:50 Blood Culture - Preliminary Blood No Growth after 24 hours <Josias Botello - Last Filed: 05/05/21 19:36> Subjective I have personally seen and examined the patient, reviewed the NAIL PROFESSIONAL /PAs history, exam and MDM and agree with the assessment and plan as written. Based on total visit time, I have performed more than 50% of the visit. As above: Patient distended today. No nausea or vomiting. Appetite is diminished. DELFINO drain is serosanguineous. Continue full liquids for now. Ambulate. Continue antibiotics. Objective - Vital Signs Vital signs: Vital Signs Temp 98.6 F 05/05/21 13:00 Pulse 64 05/05/21 13:00 Resp 16 05/05/21 13:00 BP 130/80 05/05/21 13:00 Pulse Ox 96 05/05/21 13:00 Intake & Output 05/05/21 05/05/21 05/06/21 06:59 18:59 06:59 Intake Total 1300 Output Total 1180 80 Balance 120 -80 Intake: Intake, IV Titration 400 Amount Cefepime 2 gm In Sodium 200 Chloride 0.9% 100 ml @ 25 mls/hr IVPB Q8H MARIA ESTHER Rx#: [id number] metroNIDAZOLE-NS PMX 500 200 mg In Saline 1 100ml.bag @ 100 mls/hr IVPB Q8H MARIA ESTHER Rx#:[id number] Oral 900 Output: Drainage 40 80 Lower Abdomen 40 80 Urine 1140 Other: Voiding Method Toilet Urinal # Voids 1 2 - Labs CBC & Chem 7: 05/05/21 09:59 05/04/21 06:45 Labs: Microbiology - Last 24 Hours (Table) 05/03/21 21:00 Blood Culture - Preliminary Blood No Growth after 24 hours 05/03/21 19:50 Blood Culture - Preliminary Blood No Growth after 24 hours Assessment and Plan (1) Acute appendicitis Current Visit: Yes Status: Acute Code(s): K35.80 - UNSPECIFIED ACUTE APPENDICITIS SNOMED Code(s): 89391436
[2021-05-06] MEDS: HEPARIN SODIUM,PORCINE/PF 5,000 UNIT/0.5 ML SYRINGE SQ SCH ×4 (00:40→23:15)
[2021-05-06] MEDS: CEFEPIME 2 GM in SODIUM CHLORIDE 0.9% 100 ML IVPB SCH ×3 (04:38→19:13)
[2021-05-06] MEDS: metroNIDAZOLE-NS PMX 500 MG in SALINE 1 100ML.BAG IVPB SCH ×3 (04:40→19:13)
[2021-05-06] MEDS: lamoTRIgine 100 MG TAB PO SCH ×2 (08:57→21:09)
[2021-05-06] MEDS: ATOMOXETINE HCL 60 MG PO SCH (08:59)
[2021-05-06] MEDS: FAMOTIDINE 20 MG/2 ML VIAL IV SCH ×2 (08:59→21:09)
[2021-05-06] MEDS: HYDROcodone/APAP 5-325MG 1 EACH TAB PO PRN (09:16)
[2021-05-06] MEDS: OLANZapine 7.5 MG TAB PO SCH (09:16)
[2021-05-06] MEDS: VENLAFAXINE HCL ER 150 MG CAP PO SCH (09:16)
[2021-05-06] MEDS: LORATADINE 10 MG TAB PO SCH (14:44)
--- NOTE | 2021-05-06 14:48 | P.PN ---
<Farrah Roldan - Last Filed: 05/06/21 14:44> Subjective Progress Note Date: 05/06/21 CHIEF COMPLAINT: Appendicitis HISTORY OF PRESENT ILLNESS: Patient is status post laparoscopic appendectomy, POD#2. He reports that his pain is controlled. He denies any nausea or vomiting. He has passed a small amount of flatus. No bowel movement. Patient's abdomen appears more distended today. He has been up and ambulating. Patient complaining of sinus congestion. Afebrile. No new lab PHYSICAL EXAM: VITAL SIGNS: Reviewed. GENERAL: Well-developed in no acute distress. HEENT: No sclera icterus. Extraocular movements grossly intact. Moist buccal mucosa. Head is atraumatic, normocephalic. ABDOMEN: Soft. More distended. Nontender. Incision sites clean dry and intact. DELFINO drain with serosanguineous 40 mL output this a.m. NEUROLOGIC: Alert and oriented. Cranial nerves II through XII grossly intact. ASSESSMENT: 1. Acute appendicitis status post laparoscopic appendectomy PLAN: -Continue antibiotics -Continue full liquid diet -Continue pain medication as needed -Encourage patient to ambulate -Continue antibiotics -Incentive spirometer ordered -Add Claritin for sinus congestion -Further recommendations forthcoming per surgeon -GI prophylaxis Pepcid and DVT prophylaxis subcu heparin Physician Corporate Driver note has been reviewed by physician. Signing provider agrees with the documented findings, assessment, and plan of care. Objective - Vital Signs Vital signs: Vital Signs Temp 97.6 F 05/06/21 11:37 Pulse 82 05/06/21 11:37 Resp 18 05/06/21 11:37 BP 118/72 05/06/21 11:37 Pulse Ox 95 05/06/21 11:37 Intake & Output 05/05/21 05/06/21 05/06/21 18:59 06:59 18:59 Intake Total 940 Output Total 80 650 540 Balance -80 290 -540 Intake: Intake, IV Titration 400 Amount Cefepime 2 gm In Sodium 200 Chloride 0.9% 100 ml @ 25 mls/hr IVPB Q8H MARIA ESTHER Rx#: [id number] metroNIDAZOLE-NS PMX 500 200 mg In Saline 1 100ml.bag @ 100 mls/hr IVPB Q8H MARIA ESTHER Rx#:[id number] Oral 540 Output: Drainage 80 40 Lower Abdomen 80 40 Urine 650 500 Other: Voiding Method Toilet Urinal # Voids 2 - Labs CBC & Chem 7: 05/05/21 09:59 05/04/21 06:45 Labs: Microbiology - Last 24 Hours (Table) 05/03/21 21:00 Blood Culture - Preliminary Blood No Growth after 48 hours 05/03/21 19:50 Blood Culture - Preliminary Blood No Growth after 48 hours <Josias Botello - Last Filed: 05/06/21 16:21> Subjective I have personally seen and examined the patient, reviewed the MEDICAL CENTER REPRESENTATIVE /PAs history, exam and MDM and agree with the assessment and plan as written. Based on total visit time, I have performed more than 50% of the visit. As above: Patient is passing some flatus. He is tolerating liquids. Says his pain is well-controlled. Patient does appear distended and tympanic however. Continue increasing activity. Daily Dulcolax suppositories. Continue antibiotics. Objective - Vital Signs Vital signs: Vital Signs Temp 97.6 F 05/06/21 11:37 Pulse 82 05/06/21 11:37 Resp 18 05/06/21 11:37 BP 118/72 05/06/21 11:37 Pulse Ox 95 05/06/21 11:37 Intake & Output 05/05/21 05/06/21 05/06/21 18:59 06:59 18:59 Intake Total 940 Output Total 80 650 540 Balance -80 290 -540 Intake: Intake, IV Titration 400 Amount Cefepime 2 gm In Sodium 200 Chloride 0.9% 100 ml @ 25 mls/hr IVPB Q8H MARIA ESTHER Rx#: [id number] metroNIDAZOLE-NS PMX 500 200 mg In Saline 1 100ml.bag @ 100 mls/hr IVPB Q8H MARIA ESTHER Rx#:[id number] Oral 540 Output: Drainage 80 40 Lower Abdomen 80 40 Urine 650 500 Other: Voiding Method Toilet Urinal # Voids 2 - Labs CBC & Chem 7: 05/05/21 09:59 05/04/21 06:45 Labs: Microbiology - Last 24 Hours (Table) 05/03/21 21:00 Blood Culture - Preliminary Blood No Growth after 48 hours 05/03/21 19:50 Blood Culture - Preliminary Blood No Growth after 48 hours Assessment and Plan (1) Acute appendicitis Current Visit: Yes Status: Acute Code(s): K35.80 - UNSPECIFIED ACUTE APPENDICITIS SNOMED Code(s): 78064185
[2021-05-06] MEDS: bisacodyL 10 MG SUPP RECTAL SCH (17:14)
[2021-05-06] MEDS: DOCUSATE 100 MG CAP PO SCH (21:09)
[2021-05-07] MEDS: CEFEPIME 2 GM in SODIUM CHLORIDE 0.9% 100 ML IVPB SCH ×2 (04:18→10:51)
[2021-05-07] MEDS: metroNIDAZOLE-NS PMX 500 MG in SALINE 1 100ML.BAG IVPB SCH ×2 (04:18→11:34)
[2021-05-07 05:15] VITALS: TEMP 98.1
[2021-05-07] MEDS: HEPARIN SODIUM,PORCINE/PF 5,000 UNIT/0.5 ML SYRINGE SQ SCH (09:22)
[2021-05-07] MEDS: DOCUSATE 100 MG CAP PO SCH (09:22)
[2021-05-07] MEDS: lamoTRIgine 100 MG TAB PO SCH (09:23)
[2021-05-07] MEDS: FAMOTIDINE 20 MG/2 ML VIAL IV SCH (09:23)
[2021-05-07] MEDS: bisacodyL 10 MG SUPP RECTAL SCH (09:23)
[2021-05-07] MEDS: LORATADINE 10 MG TAB PO SCH (09:23)
[2021-05-07] MEDS: VENLAFAXINE HCL ER 150 MG CAP PO SCH (09:24)
[2021-05-07] MEDS: OLANZapine 7.5 MG TAB PO SCH (09:24)
[2021-05-07] MEDS: ATOMOXETINE HCL 60 MG PO SCH (09:41)
[2021-05-07 11:57] VITALS: BP 146/73; PULSE 84; RESP 18
--- NOTE | 2021-05-07 12:46 | P.DS ---
Providers Date of admission: 05/03/21 19:58 Expected date of discharge: 05/07/21 Attending physician: Josias Botello Primary care physician: [facility] Course: Discharge diagnosis 1. Acute appendicitis status post laparoscopic appendectomy Hospital course This is a 71-year-old male who presented to the ER with abdominal pain that started at 4 AM on 05/04/2021. White count was elevated. Computed tomography scan had demonstrated significant thickening of the appendix and the base of the cecum. There are inflammatory changes in the right lower quadrant as well. Patient diagnosed with an acute appendicitis. He status post laparoscopic appendectomy. Patient tolerated surgery well. His pain is controlled. He is up and ambulating. He is having flatus. He is tolerating diet. Incision sites clean dry and intact. He is afebrile. He is stable for discharge. Please refer to chart for any further details. Physician Certified Pathology Assistant note has been reviewed by physician. Signing provider agrees with the documented findings, assessment, and plan of care. Patient Condition at Discharge: Stable Plan - Discharge Summary Discharge Rx Participant: Yes New Discharge Prescriptions: New Docusate [Colace] 100 mg PO BID #30 capsule HYDROcodone/APAP 5-325MG [[place] 5-325] 1 tab PO Q6HR PRN 3 Days #12 tab PRN Reason: Pain Amoxicillin/Potassium Clav [Augmentin 875-125 Tablet] 1 tab PO Q12HR 5 Days #10 tab Continue lamoTRIgine 150 mg PO BID Venlafaxine HCl ER [Effexor XR] 150 mg PO DAILY OLANZapine 15 mg PO DAILY Atomoxetine HCl [Strattera] 60 mg PO DAILY Discharge Medication List Atomoxetine HCl [Strattera] 60 mg PO DAILY 05/03/21 [History] OLANZapine 15 mg PO DAILY 05/03/21 [History] Venlafaxine HCl ER [Effexor XR] 150 mg PO DAILY 05/03/21 [History] lamoTRIgine 150 mg PO BID 05/03/21 [History] Docusate [Colace] 100 mg PO BID #30 capsule 05/06/21 [Rx] HYDROcodone/APAP 5-325MG [[place] 5-325] 1 tab PO Q6HR PRN 3 Days #12 tab 05/06/21 [Rx] Amoxicillin/Potassium Clav [Augmentin 875-125 Tablet] 1 tab PO Q12HR 5 Days #10 tab 05/07/21 [Rx] Follow up Appointment(s)/Referral(s): Josias Botello MD [Medical Doctor] - 1 Week Ron Da Silva DO [Primary Care Provider] - 1-2 days Activity/Diet/Wound Care/Special Instructions: No driving while taking [place] No lifting over 10 pounds You may shower. No soaking or tub baths for 2 weeks Very light activity until you are reevaluated at your follow up appointment with your surgeon Keep a log of DELFINO drain output and bring with you to your follow-up appointment Milk/strip drains 2-3 times a day Discharge Disposition: HOME SELF-CARE
== END 2021-05-07 14:28 | disposition home or self-care (01) | DRG 343 ==
LOC: EC 17:09 → 5NMEDONC 19:58
PROVIDERS: ADMIT Surgery; ATTEND Surgery
PROC: 0DTJ4ZZ Resection of Appendix, Percutaneous Endoscopic Approach (ICD-10-PCS; principal; 2021-05-04 09:30)
DX: K35.80 Unspecified acute appendicitis (principal); Z20.822 Contact with and (suspected) exposure to COVID-19; F41.9 Anxiety disorder, unspecified; F32.A Depression, unspecified; Z79.899 Other long term (current) drug therapy
CPT/HCPCS: 36415; 74177; 80048; 80053; 81001; 82150; 83605; 83690; 85025; 85610; 85730; 86850; 86900; 86901; 87040; 87635; 88304; 96361; 96365; 96368; 96375; 99285

== ENCOUNTER → 2023-09-18 | Outpatient (CLI) | payer BC ==
[2023-09-18 13:16] LABS: Basophils # (A) 0.03 X 10*3/uL (0.00-0.10); Basophils % (A) 0.7 %; Eosinophils # (A) 0.15 X 10*3/uL (0.04-0.35); Eosinophils % (A) 3.3 %; HCT 48.9 % (39.6-50.0); HGB 16.1 g/dL (13.0-17.0); Lymphocytes # (A) 0.82 X 10*3/uL (0.90-5.00); Lymphocytes % (A) 18.2 %; MCH 29.5 pg (27.0-32.0); MCHC 32.9 g/dL (32.0-37.0); MCV 89.7 FL (80.0-97.0); Mean Platelet Volume 11.1 FL (9.5-12.2); Monocytes # (A) 0.57 X 10*3/uL (0.20-1.00); Monocytes % (A) 12.6 %; NRBC Per 100 WBC 0 X 10*3/uL (0.00-0.01); Neutrophils # (A) 2.92 X 10*3/uL (1.80-7.70); Neutrophils % (A) 64.8 %; Platelet Count 281 X 10*3/uL (140-440); RBC 5.45 X 10*6/uL (4.40-5.60); RDW 12.1 % (11.5-14.5); WBC 4.51 X 10*3/uL (4.50-10.00)
[2023-09-18 13:29] LABS: Alkaline Phosphatase 140 U/L (41-126); Blood Urea Nitrogen 11.7 mg/dL (9.0-27.0); Carbon Dioxide 24.7 mmol/L (21.6-31.8); Chloride 106 mmol/L (96-109); Glucose 102 mg/dL (70-110); Potassium 4.4 mmol/L (3.5-5.5); Sodium 143 mmol/L (135-145)
[2023-09-18 14:06] LABS: Appearance,Urine Clear (Clear); Bilirubin,Urine Negative (Negative); Blood,Urine Negative (Negative); Color,Urine Yellow (Yellow); Ketones,Urine Negative (Negative); Nitrite,Urine Negative (Negative); PH, Urine 6.5
== END | disposition home or self-care (01) ==
LOC: LABWHC1 08:34
PROVIDERS: ATTEND Psychiatry & Neurology Psychiatry
DX: F31.61 Bipolar disorder, current episode mixed, mild (principal)
CPT/HCPCS: 36415; 80051; 81003; 82565; 82947; 84075; 84520; 85025